=== PATIENT | female | born 1945 | race Caucasian/White ===

== ENCOUNTER 2017-02-13 15:43 | Emergency (ER) | payer OTHER ==
--- NOTE | ~2017-02-13 | CT4 ---
[facility] A Service of [facility] & [facility] RADIOLOGY TEXT RESULTS PATIENT: LONG PÉREZ LOCATION: [facility] : 47 UNIT #: [id number] AGE: [address]: ALEJANDRA BULLARD SEX: F ORDER DR: [id number] [facility] [address] [place], [place] [address] [id number] E MR#: [id number] Acc #: [id number] NAME: LONG PÉREZ. : 1945 SEX: F STUDY DATE/TIME: 02/13/2017 14:52 UNIT: CFTX ROOM: STUDY DESCRIPTION: CT Abd and Pelv Wo Cont Attending Physician: Alejandra Bullard Aprn Ordering Physician: Alejandra Bullard Aprn Primary Care Physician: Alejandra Teresa M.D. MEDICAL IMAGING REPORT This report is preliminary unless electronic signature is present EXAM CT abdomen and pelvis without contrast. INDICATIONS Painful frequent urination and bladder pressure for 2 days with a history of kidney stones. COMPARISON There is a comparison 01/17/2016. TECHNIQUE Axial 3 mm images were obtained through the abdomen and pelvis without IV or oral contrast. This CT exam was performed with one or more of the following radiation dose reduction techniques: automatic exposure control, adjustment of mA and/or kV according to patient size, and iterative reconstruction. FINDINGS Lung bases are clear. The gallbladder been removed. The liver, spleen, pancreas, and adrenal glands are normal. The right kidney has at least 2 nonobstructing stone measuring 2 mm in diameter. The left kidney has a cord calcification measuring 2-3 mm in diameter but there are no definite collecting system stones, and there is no hydronephrosis. The aorta is normal in size and there is no adenopathy. The bowel is normal except for scattered colonic diverticula. The bladder is normal. The uterus has been removed and there is no adnexal masses. The bones show mild degenerative changes. IMPRESSION 1. There appear to be some tiny nonobstructing stones in the right kidney and possibly in the left kidney as well. There are cortical calcifications as well. There is no obstruction or ureteral stone. 2. Prior hysterectomy and cholecystectomy. STS. [facility] A Service of [facility] & [facility] RADIOLOGY TEXT RESULTS PATIENT: LONG PÉREZ LOCATION: [facility] : 47 UNIT #: [id number] AGE: [address]: ALEJANDRA BULLARD SEX: F ORDER DR: 3. Otherwise, normal. Dictated by... Ubaldo Carney M.D. THIS IS AN ELECTRONICALLY VERIFIED REPORT Ubaldo Carney M.D. at 02/13/2017 9:54 PM LETY/hair TD: 02/13/2017 18:42 JOB #: [id number] MEDICAL IMAGING REPORT Page 1 of 1 COPY
[2017-02-13 13:51] LABS: URINE SOURCE CLEAN CATCH
[2017-02-13 14:02] LABS: URINE APPEARANCE TURBID; URINE BLOOD 3+ (NEG); URINE COLOR ORANGE; URINE GLUCOSE 100 MG/DL (NEG); URINE KETONE NEG (NEG); URINE LEUKOCYTE ESTERASE 3+ (NEG); URINE NITRATE POS (NEG); URINE PROTEIN 2+ (NEG); URINE SPECIFIC GRAVITY 1.011 (1.003-1.035)
[2017-02-13 14:06] LABS: CULTURE INDICATED? YES; URBCS1 AUWI 100-200 /[HPF] (0-2); URINE BACTERIA AUWI 4+ (NEGATIVE); URINE SQUAMOUS EPITHELIAL CELL OCC /[HPF]; UWBCS1 AUWI INNUM (0-5)
[2017-02-13 14:11] LABS: URINE BILIRUBIN NEG (NEG)
[~2017-02-13 15:43] MED LIST: ACCUPRIL PO; ACCUPRIL40 MG PO; AMARYL2 MG PO; AMLODIPINE BESY10 MG PO; CARVEDILOL25 MG PO; DARVOCET-N 1001 TAB PO; LASIX20 MG PO; METFORMIN PO; NORVASC PO; SEPTRA DS; TOPROL XL PO; TUSSIONEX PENN473 ML PO
== END 2017-02-13 16:06 | disposition home or self-care (01) ==
LOC: CFTX 15:43
DX: N30.00 Acute cystitis without hematuria (principal); E11.9 Type 2 diabetes mellitus without complications; I10 Essential (primary) hypertension; Z90.49 Acquired absence of other specified parts of digestive tract; Z90.710 Acquired absence of both cervix and uterus; F17.210 Nicotine dependence, cigarettes, uncomplicated; Z88.5 Allergy status to narcotic agent
CPT/HCPCS: 74176; 81003; 82947; 87086; 87088; 87186; 99284

== ENCOUNTER 2017-03-12 22:27 | Emergency (ER) | payer OTHER ==
--- NOTE | ~2017-03-12 | CR126 ---
[facility] A Service of [facility] & [facility] RADIOLOGY TEXT RESULTS PATIENT: LONG PÉREZ LOCATION: [facility] : 47 UNIT #: [id number] AGE: [address]: Mildred Rivera APRN SEX: F ORDER DR: [id number] [facility] [address] [place], [place] [address] [id number] E MR#: [id number] Acc #: [id number] NAME: LONG PÉREZ. : 1945 SEX: F STUDY DATE/TIME: 03/13/2017 0:44 UNIT: CFTX ROOM: STUDY DESCRIPTION: CR Foot Complete Min 3 View Lt Attending Physician: Mildred Rivera A.P.R.N. Ordering Physician: Mildred Rivera A.P.R.N. Primary Care Physician: Ken Teresa M.D. MEDICAL IMAGING REPORT This report is preliminary unless electronic signature is present EXAM Left foot, 03/13/2017. HISTORY 72-year-old female in the ED complaining of severe dorsal foot pain over the last 2 days. No reported acute injury. TECHNIQUE Three-view left foot series. FINDINGS No acute osseous abnormality is demonstrated. There is no evidence of stress fracture, significant arthropathy, or additional osseous abnormality. IMPRESSION Negative left foot series. Dictated by... Hernan Goldstein M.D. THIS IS AN ELECTRONICALLY VERIFIED REPORT Hernan Goldstein M.D. at 03/13/2017 9:53 PM PATRICIAW/carlos TD: 03/13/2017 12:54 JOB #: [id number] MEDICAL IMAGING REPORT Page 1 of 1 COPY
== END 2017-03-13 02:20 | disposition home or self-care (01) ==
LOC: CED 22:27 → CFTX 22:27
DX: M72.2 Plantar fascial fibromatosis (principal); E11.9 Type 2 diabetes mellitus without complications; I10 Essential (primary) hypertension; F17.200 Nicotine dependence, unspecified, uncomplicated; Z79.899 Other long term (current) drug therapy; Z79.891 Long term (current) use of opiate analgesic
CPT/HCPCS: 29540; 73630; 99283